=== PATIENT | male | born 1960 | race Caucasian/White ===

== ENCOUNTER 2018-04-14 14:45 | Inpatient (IN) | payer MEDICAID, OTHER ==
[~2018-04-14] VITALS: Ht 175.3 cm; Wt 93.4 kg
[2018-04-14] MEDS ORDERED: SODIUM CHLORIDE FLUSH 10ML SYR IVF ONE (15:30)
[2018-04-14 15:44] LABS: PH, VENOUS 7.342 pH (7.320-7.420)
[2018-04-14 15:48] LABS: BASOPHILS # (AUTO) 0.02 x10^3/uL (0-0.1); BASOPHILS % (AUTO) 0 % (0-1); EOSINOPHILS # (AUTO) 0.11 x10^3/uL (0-0.4); EOSINOPHILS % (AUTO) 2 % (1-7); LYMPHOCYTES # (AUTO) 0.99 x10^3/uL (1-3.4); LYMPHOCYTES % (AUTO) 16 % (22-44); MD NO; MEAN CORPUSCULAR HEMOGLOBIN 30.5 pg (27.5-34.5); MEAN CORPUSCULAR HGB CONC 33.5 g/dL (33.2-36.2); MEAN PLATELET VOLUME 8.8 fL (7.4-10.4); MONOCYTES # (AUTO) 0.46 x10^3/uL (0.2-0.8); MONOCYTES % (AUTO) 7 % (2-9); NEUTROPHILS # (AUTO) 4.82 x10^3/uL (1.8-6.8); NEUTROPHILS % (AUTO) 75 % (42-75); PLATELET COUNT 356 x10^3/uL (130-400); RED BLOOD COUNT 5.12 x10^6/uL (4.38-5.82); RED CELL DISTRIBUTION WIDTH 12.6 % (9.4-14.8)
[2018-04-14 15:52] LABS: CULTURE INDICATED? YES; MICROSCOPIC INDICATED
[2018-04-14 15:54] LABS: ALANINE AMINOTRANSFERASE 30 U/L (12-78); ALBUMIN 3.8 g/dL (3.4-5.0); ANION GAP 8 mmol/L (5-15); CALCIUM 9.3 mg/dL (8.5-10.1); CHLORIDE 85 mmol/L (98-107); CREATININE 1.61 mg/dL (0.7-1.3)
[2018-04-14 15:57] LABS: ALKALINE PHOSPHATASE 348 U/L (45-117); TOTAL PROTEIN 8.4 g/dL (6.4-8.2)
[2018-04-14] MEDS ORDERED: PLEASE ENTER ALLERGIES MC SCH (16:00)
[2018-04-14 16:06] LABS: ACETONE, SERUM Negative (Negative)
[2018-04-14] MEDS ORDERED: INSULIN REGULAR 100 UNITS/ML, 3ML VIAL ONE (16:23)
[2018-04-14] MEDS ORDERED: SODIUM CHLORIDE 0.9% 1,000ML IVBOLUS ONE (16:30)
[2018-04-14] MEDS ORDERED: CEFTRIAXONE PMX 1GM/50ML 50 ML IV ONE (16:30)
[2018-04-14] MEDS ORDERED: INSULIN REGULAR 100 UNITS/ML, 3ML VIAL IVPush ONE (16:30)
[2018-04-14] MEDS ORDERED: SODIUM CHLORIDE 0.9% 1,000 ML IV SCH (16:48)
[2018-04-14] MEDS ORDERED: GABAPENTIN 300 MG CAPSULE PO PRN (17:00)
[2018-04-14] MEDS ORDERED: DEXTROSE 4 GM TAB.CHEW PO PRN (17:00)
[2018-04-14] MEDS ORDERED: LABETALOL 5MG/ML, 20ML IVPush PRN (17:00)
[2018-04-14] MEDS ORDERED: GLUCAGON 1 MG IM PRN (17:00)
[2018-04-14] MEDS ORDERED: ONDANSETRON 2MG/ML, 2ML IVPush PRN (17:00)
[2018-04-14] MEDS ORDERED: DEXTROSE 50%, 50ML SYRINGE IVPush PRN (17:00)
[2018-04-14] MEDS ORDERED: BISACODYL 10 MG SUPP PR PRN (17:00)
[2018-04-14] MEDS ORDERED: DOCUSATE 100 MG CAPSULE PO PRN (17:00)
[2018-04-14] MEDS ORDERED: hydrALAzine 20 MG/ML, 1ML IVPush PRN (17:00)
[2018-04-14] MEDS ORDERED: POLYETHYLENE GLYCOL 17 GM PACKET PO PRN (17:00)
[2018-04-14] MEDS ORDERED: ACETAMINOPHEN 325 MG TABLET PO PRN (17:00)
[2018-04-14] MEDS ORDERED: ONDANSETRON ODT 4 MG PO PRN (17:00)
[2018-04-14] MEDS ORDERED: POTASSIUM CHLORIDE 20 MEQ in SODIUM CHLORIDE 0.9% 250 ML IV ONE (17:00)
[2018-04-14] MEDS ORDERED: TEMAZEPAM 15 MG CAPSULE PO PRN (17:30)
[2018-04-14] MEDS: hydrALAzine 20 MG/ML, 1ML IV ONE ×2 (17:30→20:43)
[2018-04-14 18:05] LABS: HEMOGLOBIN A1C 15.1 % (4.2-6.3)
[2018-04-14 18:07] VITALS: BP 166/106
[2018-04-14] MEDS: INSULIN LISPRO 100 UNITS/ML, PEN SQ-INSULIN SCH (18:51)
[2018-04-14 19:17] VITALS: BP 158/82
[2018-04-14 19:32] LABS: AMPHETAMINE SCREEN, URINE Positive (Negative); BARBITURATE SCREEN, URINE Negative (Negative); BENZODIAZEPINE SCREEN, URINE Negative (Negative); CANNABINOID SCREEN, URINE Negative (Negative); COCAINE SCREEN, URINE Negative (Negative); METHADONE SCREEN, URINE Negative (Negative); OPIATE SCREEN, URINE Negative (Negative)
[2018-04-14 19:33] LABS: ANION GAP 6 mmol/L (5-15); CALCIUM 7.9 mg/dL (8.5-10.1); CHLORIDE 97 mmol/L (98-107); CREATININE 1.16 mg/dL (0.7-1.3)
[2018-04-14] MEDS ORDERED: MAGNESIUM SULFATE PMX 2GM/50ML 50 ML IV ONE (20:00)
[2018-04-14] MEDS ORDERED: NS + 40MEQ KCL 1,000 ML IV SCH (20:00)
[2018-04-14] MEDS ORDERED: INSULIN LISPRO 100 UNITS/ML, PEN SQ-INSULIN ONE (20:30)
[2018-04-14] MEDS: HEPARIN 5,000 UNITS/ML, 1ML SQ SCH (20:42)
[2018-04-14] MEDS: LISINOPRIL 10 MG TABLET PO SCH (20:42)
[2018-04-14] MEDS: TAMSULOSIN 0.4 MG CAP.ER.24H PO SCH (20:42)
[2018-04-14] MEDS: CEFTRIAXONE PMX 1GM/50ML 50 ML IV SCH ×2 (20:43→23:25)
[2018-04-14 22:30] VITALS: BP 147/99
[2018-04-14] MEDS: SODIUM CHLORIDE FLUSH 10ML SYR IVF SCH (23:26)
[2018-04-15 01:20] VITALS: BP 151/78
[2018-04-15 01:39] VITALS: BP 157/89
[2018-04-15 01:42] LABS: ANION GAP 7 mmol/L (5-15); CALCIUM 8.6 mg/dL (8.5-10.1); CHLORIDE 104 mmol/L (98-107); CREATININE 0.98 mg/dL (0.7-1.3)
[2018-04-15 05:13] LABS: BASOPHILS # (AUTO) 0.05 x10^3/uL (0-0.1); BASOPHILS % (AUTO) 1 % (0-1); EOSINOPHILS # (AUTO) 0.33 x10^3/uL (0-0.4); EOSINOPHILS % (AUTO) 5 % (1-7); LYMPHOCYTES # (AUTO) 1.56 x10^3/uL (1-3.4); LYMPHOCYTES % (AUTO) 23 % (22-44); MD NO; MEAN CORPUSCULAR HEMOGLOBIN 31.2 pg (27.5-34.5); MEAN CORPUSCULAR HGB CONC 34.9 g/dL (33.2-36.2); MEAN CORPUSCULAR VOLUME 89.6 fL (81-97); MEAN PLATELET VOLUME 8.4 fL (7.4-10.4); MONOCYTES # (AUTO) 0.59 x10^3/uL (0.2-0.8); MONOCYTES % (AUTO) 9 % (2-9); NEUTROPHILS # (AUTO) 4.31 x10^3/uL (1.8-6.8); NEUTROPHILS % (AUTO) 63 % (42-75); PLATELET COUNT 285 x10^3/uL (130-400); RED BLOOD COUNT 4.28 x10^6/uL (4.38-5.82)
[2018-04-15 05:18] LABS: ALBUMIN 2.9 g/dL (3.4-5.0); ANION GAP 7 mmol/L (5-15); CALCIUM 7.9 mg/dL (8.5-10.1); CHLORIDE 104 mmol/L (98-107)
[2018-04-15 05:22] LABS: ALANINE AMINOTRANSFERASE 21 U/L (12-78); ALKALINE PHOSPHATASE 147 U/L (45-117); BILIRUBIN,TOTAL 0.9 mg/dL (0.2-1.0); CREATININE 0.93 mg/dL (0.7-1.3); TOTAL PROTEIN 6.3 g/dL (6.4-8.2)
[2018-04-15] MEDS: ASPIRIN 81 MG TABLET EC PO SCH (05:56)
[2018-04-15] MEDS ORDERED: INSULIN REGULAR 100 UNITS/ML, 3ML VIAL SQ-INSULIN SCH (07:00)
[2018-04-15] MEDS: HEPARIN 5,000 UNITS/ML, 1ML SQ SCH ×3 (07:00→23:07)
[2018-04-15] MEDS: INSULIN LISPRO 100 UNITS/ML, PEN SQ-INSULIN SCH ×4 (07:00→20:48)
[2018-04-15 07:38] VITALS: BP 170/108
[2018-04-15 08:00] VITALS: BP 144/99
[2018-04-15] MEDS: NS + 40MEQ KCL 1,000 ML IV SCH ×2 (08:00→18:16)
[2018-04-15] MEDS: LISINOPRIL 10 MG TABLET PO SCH (08:13)
[2018-04-15] MEDS: TAMSULOSIN 0.4 MG CAP.ER.24H PO SCH (08:13)
[2018-04-15] MEDS: SODIUM CHLORIDE FLUSH 10ML SYR IVF SCH ×2 (08:13→20:49)
[2018-04-15] MEDS: INSULIN GLARGINE 100 UNITS/ML, PEN SQ-INSULIN SCH ×2 (09:00→20:48)
[2018-04-15] MEDS ORDERED: POTASSIUM CHLORIDE 20 MEQ TAB.ER.PRT PO ONE (11:00)
[2018-04-15 13:09] VITALS: BP 164/94
[2018-04-15] MEDS: metFORMIN 850 MG TABLET PO SCH (17:45)
[2018-04-15] MEDS: CEFTRIAXONE PMX 1GM/50ML 50 ML IV SCH (17:45)
[2018-04-15 19:40] VITALS: BP 157/89
[2018-04-15] MEDS ORDERED: NS + 40MEQ KCL 1,000 ML IV SCH (20:00)
[2018-04-16 01:26] VITALS: BP 149/82
[2018-04-16] MEDS: NS + 40MEQ KCL 1,000 ML IV SCH ×2 (02:19→10:44)
[2018-04-16] MEDS: ASPIRIN 81 MG TABLET EC PO SCH (05:33)
[2018-04-16 05:49] LABS: BASOPHILS # (AUTO) 0.03 x10^3/uL (0-0.1); BASOPHILS % (AUTO) 0 % (0-1); EOSINOPHILS # (AUTO) 0.29 x10^3/uL (0-0.4); EOSINOPHILS % (AUTO) 4 % (1-7); LYMPHOCYTES # (AUTO) 1.89 x10^3/uL (1-3.4); LYMPHOCYTES % (AUTO) 29 % (22-44); MD NO; MEAN CORPUSCULAR HEMOGLOBIN 31.3 pg (27.5-34.5); MEAN CORPUSCULAR HGB CONC 34.7 g/dL (33.2-36.2); MEAN CORPUSCULAR VOLUME 90.3 fL (81-97); MEAN PLATELET VOLUME 8.6 fL (7.4-10.4); MONOCYTES # (AUTO) 0.48 x10^3/uL (0.2-0.8); MONOCYTES % (AUTO) 8 % (2-9); NEUTROPHILS # (AUTO) 3.77 x10^3/uL (1.8-6.8); NEUTROPHILS % (AUTO) 58 % (42-75); PLATELET COUNT 287 x10^3/uL (130-400); RED BLOOD COUNT 4.18 x10^6/uL (4.38-5.82); RED CELL DISTRIBUTION WIDTH 13.1 % (9.4-14.8)
[2018-04-16 06:06] LABS: CHLORIDE 104 mmol/L (98-107)
[2018-04-16 06:18] LABS: ALANINE AMINOTRANSFERASE 21 U/L (12-78); ALBUMIN 2.6 g/dL (3.4-5.0); ALKALINE PHOSPHATASE 107 U/L (45-117); ANION GAP 8 mmol/L (5-15); BILIRUBIN,TOTAL 0.8 mg/dL (0.2-1.0); CALCIUM 7.7 mg/dL (8.5-10.1); CREATININE 0.86 mg/dL (0.7-1.3); TOTAL PROTEIN 5.8 g/dL (6.4-8.2)
[2018-04-16 07:51] VITALS: BP 160/100
[2018-04-16] MEDS: TAMSULOSIN 0.4 MG CAP.ER.24H PO SCH (08:02)
[2018-04-16] MEDS: LISINOPRIL 10 MG TABLET PO SCH (08:02)
[2018-04-16] MEDS: metFORMIN 850 MG TABLET PO SCH ×2 (08:02→16:58)
[2018-04-16] MEDS: HEPARIN 5,000 UNITS/ML, 1ML SQ SCH ×3 (08:02→23:01)
[2018-04-16] MEDS: INSULIN LISPRO 100 UNITS/ML, PEN SQ-INSULIN SCH ×4 (08:03→21:05)
[2018-04-16] MEDS: INSULIN GLARGINE 100 UNITS/ML, PEN SQ-INSULIN SCH ×2 (08:03→21:06)
[2018-04-16] MEDS: SODIUM CHLORIDE FLUSH 10ML SYR IVF SCH ×2 (08:04→21:00)
[2018-04-16] MEDS ORDERED: POTASSIUM CHLORIDE 20 MEQ TAB.ER.PRT PO ONE (08:30)
[2018-04-16] MEDS: AMLODIPINE 5 MG TABLET PO SCH (09:15)
[2018-04-16 13:47] VITALS: BP 144/91
[2018-04-16] MEDS ORDERED: ASPI81TA45 PO (16:14)
[2018-04-16] MEDS ORDERED: INSU100V SUBD (16:14)
[2018-04-16] MEDS ORDERED: TAMS-11 PO (16:14)
[2018-04-16] MEDS ORDERED: INSU100V8 SQ ×2 (16:14)
[2018-04-16] MEDS ORDERED: LISI-167 PO (16:14)
[2018-04-16] MEDS ORDERED: AMLO-150 PO (16:14)
[2018-04-16] MEDS ORDERED: SULF1TAB24 PO (16:16)
[2018-04-16 19:13] VITALS: BP 133/78
[2018-04-16] MEDS: SULFAMETH./TRIMETHOPRIM DS 800MG/160MG TABLET PO SCH (21:05)
[2018-04-17 02:17] VITALS: BP 145/80
[2018-04-17] MEDS: ASPIRIN 81 MG TABLET EC PO SCH (06:32)
[2018-04-17] MEDS: HEPARIN 5,000 UNITS/ML, 1ML SQ SCH ×2 (06:32→16:14)
[2018-04-17] MEDS ORDERED: SODIUM CHLORIDE 0.9% 1,000ML IVBOLUS ONE (07:00)
[2018-04-17] MEDS: INSULIN LISPRO 100 UNITS/ML, PEN SQ-INSULIN SCH ×3 (07:39→16:09)
[2018-04-17] MEDS: SODIUM CHLORIDE FLUSH 10ML SYR IVF SCH (07:50)
[2018-04-17 07:55] VITALS: BP 157/98
[2018-04-17 08:12] LABS: ANION GAP 7 mmol/L (5-15); CALCIUM 8.2 mg/dL (8.5-10.1); CHLORIDE 103 mmol/L (98-107); CREATININE 0.91 mg/dL (0.7-1.3)
[2018-04-17] MEDS ORDERED: INSULIN GLARGINE 100 UNITS/ML, PEN SQ-INSULIN SCH ×2 (09:00→21:00)
[2018-04-17] MEDS: metFORMIN 850 MG TABLET PO SCH ×2 (09:44→16:09)
[2018-04-17] MEDS: LISINOPRIL 10 MG TABLET PO SCH (09:44)
[2018-04-17] MEDS: TAMSULOSIN 0.4 MG CAP.ER.24H PO SCH (09:44)
[2018-04-17] MEDS: SULFAMETH./TRIMETHOPRIM DS 800MG/160MG TABLET PO SCH (09:44)
[2018-04-17] MEDS: AMLODIPINE 5 MG TABLET PO SCH (09:44)
[2018-04-17] MEDS ORDERED: METF850T PO (12:47)
[2018-04-17] MEDS ORDERED: INSU100V8 SQ (12:47)
[2018-04-17] MEDS ORDERED: TAMS-11 PO (12:52)
[2018-04-17 14:00] VITALS: BP 138/80
[2018-04-17 17:34] VITALS: BP 147/86
== END 2018-04-17 17:42 | disposition home or self-care (01) | DRG 682 ==
LOC: ED 16:57 → EDIP 17:00 → 4WST 18:01 → 4NOR 04-16 17:11
PROVIDERS: ADMIT Internal Medicine; ATTEND Internal Medicine
DX: N17.9 Acute kidney failure, unspecified (principal); E11.00 Type 2 diabetes mellitus with hyperosmolarity without nonketotic hyperglycemic-hyperosmolar coma (NKHHC); E87.1 Hypo-osmolality and hyponatremia; N10 Acute pyelonephritis; E86.0 Dehydration; I10 Essential (primary) hypertension; Z60.2 Problems related to living alone; K59.00 Constipation, unspecified; F15.10 Other stimulant abuse, uncomplicated; F17.210 Nicotine dependence, cigarettes, uncomplicated; Z66 Do not resuscitate; I16.0 Hypertensive urgency; N32.0 Bladder-neck obstruction; E87.6 Hypokalemia; E83.42 Hypomagnesemia; K80.20 Calculus of gallbladder without cholecystitis without obstruction; N40.0 Benign prostatic hyperplasia without lower urinary tract symptoms; Z91.19 Patient's noncompliance with other medical treatment and regimen; Z79.84 Long term (current) use of oral hypoglycemic drugs; Z59.0 Homelessness; Z90.49 Acquired absence of other specified parts of digestive tract; Z80.9 Family history of malignant neoplasm, unspecified; Z71.6 Tobacco abuse counseling
CPT/HCPCS: 36415; 71045; 76700; 80048; 80053; 80307; 81001; 82010; 82803; 82947; 82962; 83036; 83735; 83930; 84100; 85025; 87086; 93005; G0378; J0696; J1644; J0360; J1815; J3475; J3480; J7030